=== PATIENT | male | born 1970 | race Caucasian/White ===

== ENCOUNTER 2021-01-06 05:43 | Emergency (ER) | payer OTHER ==
[~2021-01-06] VITALS: Ht 170.2 cm; Wt 99.8 kg
[2021-01-06 05:50] VITALS: BP_SYST 140
--- NOTE | 2021-01-06 05:50 | NUR ---
Patient to ER bed 5 to gown for evaluation. Side rails up. Report given to Shahla ORTIZ.
--- NOTE | 2021-01-06 06:04 | NUR ---
ER Dr. Jaquez at bedside examining patient.
--- NOTE | 2021-01-06 06:10 | NUR ---
Assumed total care of patient. Patient AAo x4 from home c/o right foot pain and swelling that started about 2 weeks ago. Patient has history of cellulitis on same foot in same spot, states he typically takes antibiotics which helps resolve symptoms. Patient denies fever, chills, nausea, vomiting, SOB. Patient denies history of diabetes. Will continue to monitor.
--- NOTE | 2021-01-06 06:26 | NUR ---
Radiology at bedside for xray.
--- NOTE | 2021-01-06 07:17 | NUR ---
Report given to ANGEL Almanzar for continuation of care.
[2021-01-06 07:29] LABS: BASOPHILS # (AUTO) 0.1 K/uL (0.0-0.2); EOSINOPHILS # (AUTO) 0.3 K/uL (0.0-0.4); EOSINOPHILS % (AUTO) 4.4 % (0.0-4.0); HEMATOCRIT 36.7 % (36-54); HEMOGLOBIN 12.3 g/dL (14.0-18.0); LYMPHOCYTES # (AUTO) 1.8 K/uL (1.0-5.5); LYMPHOCYTES % (AUTO) 26.7 % (20.5-51.5); MEAN CORPUSCULAR HEMOGLOBIN 28 pg (27-31); MEAN CORPUSCULAR HGB CONC 34 % (32-36); MEAN CORPUSCULAR VOLUME 84 fL (79.0-98.0); MONOCYTES # (AUTO) 0.7 K/uL (0.0-1.0); MONOCYTES % (AUTO) 9.8 % (1.7-9.3); NEUTROPHILS % (AUTO) 58.1 % (40.0-70.0); PLATELET COUNT (AUTO) 274 K/uL (130-430); RED BLOOD CELL COUNT(AUTO) 4.37 MIL/uL (4.2-6.2); RED CELL DISTRIBUTION WIDTH 14.7 % (9.0-15.0); WHITE BLOOD COUNT (AUTO) 6.9 K/uL (4.8-10.8)
[2021-01-06 07:35] LABS: CALCIUM 8.5 mg/dL (8.4-11.0); CREATININE 1.37 mg/dL (0.55-1.30); POTASSIUM 4.3 mmol/L (3.5-5.1)
[2021-01-06 07:43] LABS: TOTAL BILIRUBIN 0.3 mg/dL (0.0-1.0)
[2021-01-06 07:44] LABS: ALBUMIN 3.2 g/dL (3.4-4.8); C-REACTIVE PROTEIN QUANT 0.7 mg/dL (0-0.5); URIC ACID 9.1 mg/dL (2.4-7.0)
[2021-01-06] MEDS ORDERED: HYDROcodone/ACETAMIN 10-325 MG TAB PO ONE (07:45)
[2021-01-06] MEDS ORDERED: KETOROLAC TROMETHAMINE 60 MG/2 ML VIAL IM ONE (07:45)
[2021-01-06] MEDS ORDERED: HYDR-3917 PO (07:55)
[2021-01-06] MEDS ORDERED: ALLO100T PO (07:55)
[2021-01-06] MEDS ORDERED: IBUP-1971 PO (07:55)
[2021-01-06 08:30] VITALS: BP_SYST 140
--- NOTE | 2021-01-06 08:31 | NUR ---
Patient given written and verbal discharge instructions and verbalizes understanding. ER MD discussed with patient the results and treatment provided. Patient in stable condition. ID arm band removed. Rx of allopurinol, motrin, and norco given. Patient educated on pain management and to follow up with PMD. Pain Scale 2/10. Opportunity for questions provided and answered. Medication side effect fact sheet provided.
[2021-01-06 11:33] LABS: ERYTHROCYTE SEDIMENTATION RATE 14 MM/HR (0-15)
== END 2021-01-06 08:31 | disposition home or self-care (01) ==
LOC: SED 05:43
DX: M10.9 Gout, unspecified (principal)
CPT/HCPCS: 36415; 73620; 80053; 83605; 84550; 85025; 85651; 86140; 96372; 99284; J1885

== ENCOUNTER 2021-02-18 23:18 | Emergency (ER) | payer OTHER ==
[~2021-02-18] VITALS: Ht 170.2 cm; Wt 90.7 kg
[~2021-02-18 23:18] MED LIST: ALLO100T PO; HYDR-3917 PO; IBUP-1971 PO
[2021-02-18 23:53] VITALS: BP_SYST 145
--- NOTE | 2021-02-19 01:14 | NUR ---
Patient ambulatory to bed for evaluation
--- NOTE | 2021-02-19 01:15 | NUR ---
JACQUELYN Butler at bedside examining patient.
[2021-02-19] MEDS ORDERED: PIPERACILLIN/TAZO 3.38 GM in D5W 50 ML IV ONE (01:45)
[2021-02-19] MEDS ORDERED: OXYCODONE/ACETAMINOPHEN 5-325 TABLET PO ONE (01:45)
[2021-02-19] MEDS ORDERED: VANCOMYCIN HCL 1,000 MG in D5W 250 ML IV ONE (01:45)
[2021-02-19] MEDS ORDERED: KETOROLAC TROMETHAMINE 30 MG VIAL IVP ONE (01:45)
--- NOTE | 2021-02-19 01:45 | NUR ---
AWAKE, ALERT. PT STATES THAT HE HAD BEEN HAVING [place] ANKLE PAIN, IT HURTS EVERYDAY FOR SOME TIME NOW. HE ADMITS TO HAVING CELLULITIS AND GOUT, 10/10 IN PAIN SCALE. HE ALSO HAS SOME KIND OF RASH IN HIS ANKLE.
[2021-02-19 02:24] LABS: BASOPHILS # (AUTO) 0.1 K/uL (0.0-0.2); EOSINOPHILS # (AUTO) 0.3 K/uL (0.0-0.4); EOSINOPHILS % (AUTO) 4.2 % (0.0-4.0); HEMOGLOBIN 12.5 g/dL (14.0-18.0); LYMPHOCYTES # (AUTO) 1.7 K/uL (1.0-5.5); MEAN CORPUSCULAR HEMOGLOBIN 28 pg (27-31); MEAN CORPUSCULAR HGB CONC 33 % (32-36); MEAN CORPUSCULAR VOLUME 84 fL (79.0-98.0); MONOCYTES # (AUTO) 0.6 K/uL (0.0-1.0); MONOCYTES % (AUTO) 9.9 % (1.7-9.3); NEUTROPHILS # (AUTO) 3.7 K/uL (1.8-7.7); NEUTROPHILS % (AUTO) 57.9 % (40.0-70.0); PLATELET COUNT (AUTO) 272 K/uL (130-430); RED BLOOD CELL COUNT(AUTO) 4.51 MIL/uL (4.2-6.2); RED CELL DISTRIBUTION WIDTH 14.6 % (9.0-15.0); WHITE BLOOD COUNT (AUTO) 6.4 K/uL (4.8-10.8)
[2021-02-19 02:56] LABS: CALCIUM 9.1 mg/dL (8.4-11.0); CREATININE 1.32 mg/dL (0.55-1.30); POTASSIUM 3.8 mmol/L (3.5-5.1)
--- NOTE | 2021-02-19 03:00 | NUR ---
DOZES ON AND OFF. NO DISTRESS NOTED. AT BEDSIDE VISITING AT THIS TIME.
[2021-02-19 03:09] LABS: ALBUMIN 3.3 g/dL (3.4-4.8); TOTAL BILIRUBIN 0.3 mg/dL (0.0-1.0)
[2021-02-19] MEDS ORDERED: IBUP-1969 PO ×2 (03:33→03:36)
[2021-02-19] MEDS ORDERED: HYDR-3917 PO (03:33)
[2021-02-19] MEDS ORDERED: PIPERACILLIN/TAZOBACTAM 3.375 GM/VIAL (ZOSYN) IV ONE (03:34)
[2021-02-19] MEDS ORDERED: SULF1TAB48 PO (03:36)
[2021-02-19] MEDS ORDERED: VANCOMYCIN HCL 1000 MG/VIAL IV ONE (03:57)
[2021-02-19 05:35] VITALS: BP_SYST 145
--- NOTE | 2021-02-19 05:35 | NUR ---
Patient given written and verbal discharge instructions and verbalizes understanding. ER DR GALDINO TITUS discussed with patient the results and treatment provided. Patient in stable condition. ID arm band removed. IV catheter removed intact and dressing applied, no active bleeding. Rx of NORCO, IBUPROFEN, & BACTRIM given. Patient educated on pain management and to follow up with PMD. Pain Scale . Opportunity for questions provided and answered. Medication side effect fact sheet provided.
[2021-02-19 08:57] LABS: ERYTHROCYTE SEDIMENTATION RATE 24 MM/HR (0-15)
== END 2021-02-19 05:35 | disposition home or self-care (01) ==
LOC: SED 23:18
DX: L03.116 Cellulitis of left lower limb (principal); M10.9 Gout, unspecified
CPT/HCPCS: 36415; 80053; 83605; 84550; 85025; 85651; 87040; 96365; 96368; 96375; 99284; J1885; J2543; J3370

== ENCOUNTER 2021-04-21 22:03 | Emergency (ER) | payer OTHER, SELFPAY ==
[~2021-04-21] VITALS: Ht 170.2 cm; Wt 90.7 kg
[~2021-04-21 22:03] MED LIST changes: +IBUP-1969 PO; +SULF1TAB48 PO
[2021-04-21 22:10] VITALS: BP_SYST 113
--- NOTE | 2021-04-21 22:10 | NUR ---
Patient triaged and placed in the tent. VSS and patient appears in no acute distress at this time. awaiting available bed, and MD notified of need for MSE.
--- NOTE | 2021-04-22 01:05 | NUR ---
ER examining patient in [facility] tent.
[2021-04-22] MEDS ORDERED: IBUPROFEN 600 MG TABLET PO ONE (01:15)
[2021-04-22] MEDS ORDERED: IBUP-1969 PO (01:55)
[2021-04-22] MEDS ORDERED: HYDR-3917 PO (01:55)
[2021-04-22 02:05] VITALS: BP_SYST 118
--- NOTE | 2021-04-22 02:05 | NUR ---
Patient given written and verbal discharge instructions and verbalizes understanding. ER MD discussed with patient the results and treatment provided. Patient in stable condition. ID arm band removed. Rx of [place] and Motrin given. Patient educated on pain management and to follow up with PMD. Pain Scale 0/10 Opportunity for questions provided and answered. Medication side effect fact sheet provided.
== END 2021-04-21 22:10 | disposition home or self-care (01) ==
LOC: SED 22:03
DX: B34.9 Viral infection, unspecified (principal); Z20.822 Contact with and (suspected) exposure to COVID-19; Z79.899 Other long term (current) drug therapy
CPT/HCPCS: 36415; 99283

== ENCOUNTER 2021-08-21 20:33 | Emergency (ER) | payer OTHER ==
[~2021-08-21] VITALS: Ht 170.2 cm; Wt 90.7 kg
--- NOTE | 2021-08-21 20:42 | NUR ---
DR CODY in room for exam
[2021-08-21 20:43] VITALS: BP_SYST 135
--- NOTE | 2021-08-21 20:43 | NUR ---
Patient to ER bed 03 to gown for evaluation. Side rails up.
--- NOTE | 2021-08-21 20:58 | NUR ---
PT COMES TO ER WITH C/O LEFT FOOT PAIN X 2 DAYS. ADMITS TO DRINKING ALCOHOL AND EATING MEAT. ALSO STATES HE'S NOT TAKING HIS PRESCRIBED MEDS PRESCRIBED. MILD REDNESS NOTED, NO GROSS SWELLING NOTED, WARM TO TOUCH.
[2021-08-21] MEDS ORDERED: HYDROcodone/ACETAMIN 5-325 MG TAB (NORCO/ VICODIN) PO ONE (22:00)
[2021-08-21] MEDS ORDERED: IBUP-1969 PO (23:12)
--- NOTE | 2021-08-21 23:50 | NUR ---
PER DR AUGUSTE, OK TO CANCEL LAB DRAW AND DC PT.
[2021-08-21 23:53] VITALS: BP_SYST 133
--- NOTE | 2021-08-21 23:54 | NUR ---
Patient given written and verbal discharge instructions and verbalizes understanding. ER MD discussed with patient the results and treatment provided. Patient in stable condition. ID arm band removed. Rx of NORCO, IBUPOFEN given. Patient educated on pain management and to follow up with PMD. Pain Scale . Opportunity for questions provided and answered. Medication side effect fact sheet provided.
[2021-08-21] MEDS ORDERED: COLC0.6T67 PO (23:55)
[2021-08-21] MEDS ORDERED: ALLO100T PO (23:55)
== END 2021-08-21 23:53 | disposition home or self-care (01) ==
LOC: SED 20:33
DX: M10.9 Gout, unspecified (principal); Z79.899 Other long term (current) drug therapy
CPT/HCPCS: 99283

== ENCOUNTER 2021-12-10 00:01 | Emergency (ER) | payer OTHER ==
[~2021-12-10] VITALS: Ht 170.2 cm; Wt 99.8 kg
[~2021-12-10 00:01] MED LIST changes: +COLC0.6T67 PO
--- NOTE | 2021-12-10 00:03 | NUR ---
PT CAME FROM HOME WITH C/O GOUT FLARE UP FROM THE LEFT ANKLE TO LEFT KNEE. PT STATED THE PAIN STARTED 2 DAYS AGO. PT HAS HX OF GOUT. RATED PAIN 10/10.
[2021-12-10 00:16] VITALS: BP_SYST 158
[2021-12-10] MEDS ORDERED: KETOROLAC TROMETHAMINE 60 MG/2 ML VIAL IM ONE (00:30)
[2021-12-10] MEDS ORDERED: COLCHICINE 0.6 MG TABLET PO ONE (00:30)
--- NOTE | 2021-12-10 00:45 | NUR ---
ASSUME CARE OF PT BY [place] ORTIZ, PT C/O LEFT ANKLE PAIN/SWELLING, PT STATES PAIN STARTS FROM HIS LEFT KNEE AND RUNS DOWN TO ANKLE X 2 DAYS, HX- GOUT, DENIES TAKING ANY MEDS.
[2021-12-10] MEDS ORDERED: COLCHICINE 0.6 MG TABLET ONE (01:20)
[2021-12-10] MEDS ORDERED: COLC0.6C3 PO (02:38)
[2021-12-10] MEDS ORDERED: ALLO100T91 PO (02:38)
[2021-12-10] MEDS ORDERED: NAPR-1172 PO (02:38)
[2021-12-10 02:46] VITALS: BP_SYST 123
--- NOTE | 2021-12-10 02:48 | NUR ---
Patient given written and verbal discharge instructions and verbalizes understanding. ER MD discussed with patient the results and treatment provided. Patient in stable condition. ID arm band removed. Rx of Naproxen, allopurinol, colchicine given. Patient educated on pain management and to follow up with PMD. Pain Scale 2. Opportunity for questions provided and answered. Medication side effect fact sheet provided.
== END 2021-12-10 02:48 | disposition home or self-care (01) ==
LOC: SED 00:01
DX: M10.9 Gout, unspecified (principal); M25.571 Pain in right ankle and joints of right foot; M25.561 Pain in right knee; Z79.899 Other long term (current) drug therapy
CPT/HCPCS: 99283; 96372; J1885

== ENCOUNTER 2021-12-24 23:39 | Emergency (ER) | payer OTHER ==
[~2021-12-24] VITALS: Ht 170.2 cm; Wt 100.2 kg
[~2021-12-24 23:39] MED LIST changes: +ALLO100T91 PO; +COLC0.6C3 PO; +NAPR-1172 PO
[2021-12-24 23:45] VITALS: BP_SYST 132
--- NOTE | 2021-12-25 00:05 | NUR ---
PT HERE C/O LT ARM NUMBNESS AND TINGLING SENSATION ON AND OFF X4 DAYS. PT DENIES FEVER. NOTED SPLINT TO HIS LT EXTREMITIES. PATIENT STATED THAT HE UNDERWENT [place] [facility] [place]15/21 BAND PER PT HE WAS DC'D ON A WEEK AGO. FINGERS ARE WARM TO TOUGH, +SENSATION, <3 SECS ON CAPILLARY TIME. PMH:LT ARM SURGERY, GOUT PT AAOX4, DENIES SOB. PT AMBULATED WITH STEADY GAIT TO RM 5, PENDING MD POWELL.
--- NOTE | 2021-12-25 02:55 | NUR ---
PT D/C WITH PRESCRIPTION, GIVEN D/C INSTRUCTIONS IN STABLE CONDITION
[2021-12-25] MEDS ORDERED: AUG875 PO (02:59)
== END 2021-12-25 03:08 | disposition home or self-care (01) ==
LOC: SED 23:39
DX: M79.632 Pain in left forearm (principal); G89.18 Other acute postprocedural pain; M79.642 Pain in left hand; Z79.899 Other long term (current) drug therapy
CPT/HCPCS: 99283

== ENCOUNTER 2022-08-24 12:25 | Emergency (ER) | payer OTHER ==
[~2022-08-24] VITALS: Ht 170.2 cm; Wt 113.4 kg
[2022-08-24 12:25] VITALS: BP_SYST 169
[~2022-08-24 12:25] MED LIST changes: +AUG875 PO
--- NOTE | 2022-08-24 12:25 | NUR ---
BROUGHT BACK TO BED #1 AND TRIAGED. REPORT GIVEN TO BECKY
--- NOTE | 2022-08-24 12:40 | NUR ---
DR PARRISH TO BEDSIDE FOR EVALUATION
[2022-08-24] MEDS ORDERED: HYDROcodone/ACETAMIN 10-325 MG TAB PO ONE (12:45)
[2022-08-24] MEDS ORDERED: KETOROLAC TROMETHAMINE 60 MG/2 ML VIAL IM ONE (12:45)
--- NOTE | 2022-08-24 12:45 | NUR ---
PT BIB SELF FROM HOME C/O PAIN TO LEFT ARM. PT STATES SURGERY WITH RECONSTRUCTION IN LEFT ARM. PT STATES HURTS TO MOVE ARM. PAIN IS NONRADIATING. PAIN 10/. PT STATES NO OTHER HISTORY. PT VSS RESTING IN BED
[2022-08-24 13:05] LABS: BASOPHILS # (AUTO) 0.1 K/uL (0.0-0.2); BASOPHILS % (AUTO) 1.2 % (0.0-2.0); EOSINOPHILS # (AUTO) 0.4 K/uL (0.0-0.4); HEMATOCRIT 32.6 % (36-54); HEMOGLOBIN 10.2 g/dL (14.0-18.0); LYMPHOCYTES # (AUTO) 2.1 K/uL (1.0-5.5); LYMPHOCYTES % (AUTO) 29.1 % (20.5-51.5); MEAN CORPUSCULAR HEMOGLOBIN 22 pg (27-31); MEAN CORPUSCULAR HGB CONC 31 % (32-36); MEAN CORPUSCULAR VOLUME 70 fL (79.0-98.0); MONOCYTES # (AUTO) 0.6 K/uL (0.0-1.0); MONOCYTES % (AUTO) 8.5 % (1.7-9.3); NEUTROPHILS % (AUTO) 55.2 % (40.0-70.0); PLATELET COUNT (AUTO) 337 K/uL (130-430); RED BLOOD CELL COUNT(AUTO) 4.67 MIL/uL (4.2-6.2); RED CELL DISTRIBUTION WIDTH 16.8 % (9.0-15.0); WHITE BLOOD COUNT (AUTO) 7.3 K/uL (4.8-10.8)
[2022-08-24 13:14] LABS: ERYTHROCYTE SEDIMENTATION RATE 7 MM/HR (0-15)
[2022-08-24 13:16] LABS: ANION GAP 10 (5-15); CALCIUM 8.5 mg/dL (8.4-11.0); CHLORIDE 106 mmol/L (98-107); CREATININE 1.71 mg/dL (0.55-1.30); GFR AFRICAN AMERICAN 55 mL/min (>90); GLUCOSE 105 mg/dL (70-99); UREA NITROGEN, BLOOD 18 mg/dL (8-21)
[2022-08-24 13:21] LABS: ALANINE AMINOTRANSFERASE 25 U/L (12-78); ALBUMIN 3.7 g/dL (3.4-4.8); ASPARTATE AMINOTRANSFERASE 17 U/L (10-37); C-REACTIVE PROTEIN QUANT < 0.2 mg/dL (0-0.5); TOTAL BILIRUBIN 0.3 mg/dL (0.0-1.0); URIC ACID 7.7 mg/dL (2.4-7.0)
[2022-08-24] MEDS ORDERED: IBUP-1971 PO (13:32)
[2022-08-24] MEDS ORDERED: TRAM50TA2 PO (13:32)
[2022-08-24 14:22] VITALS: BP_SYST 169
--- NOTE | 2022-08-24 14:25 | NUR ---
Patient given written and verbal discharge instructions and verbalizes understanding. ER MD discussed with patient the results and treatment provided. Patient in stable condition. ID arm band removed. Rx of IBUPROFIN AND ULTRAM given. Patient educated on pain management and to follow up with PMD. Pain Scale 5. Opportunity for questions provided and answered. Medication side effect fact sheet provided.
== END 2022-08-24 14:25 | disposition home or self-care (01) ==
LOC: SED 12:25
DX: M79.632 Pain in left forearm (principal); Z79.899 Other long term (current) drug therapy
CPT/HCPCS: 99284; 80053; 84550; 85025; 85651; 86140; 36415; 73090; 96372; J1885

== ENCOUNTER 2022-09-05 23:32 | Emergency (ER) | payer OTHER ==
[~2022-09-05] VITALS: Ht 170.2 cm; Wt 102.1 kg
[~2022-09-05 23:32] MED LIST changes: +TRAM50TA2 PO
[2022-09-05 23:57] VITALS: BP_SYST 145
[2022-09-06] MEDS ORDERED: DOCU-144 PO (00:44)
[2022-09-06 01:06] VITALS: BP_SYST 125
== END 2022-09-06 01:02 | disposition home or self-care (01) ==
LOC: SED 23:32
DX: K62.5 Hemorrhage of anus and rectum (principal); K64.9 Unspecified hemorrhoids; Z79.899 Other long term (current) drug therapy
CPT/HCPCS: 99282

== ENCOUNTER 2023-03-25 18:39 | Emergency (ER) | payer OTHER ==
[~2023-03-25] VITALS: Ht 170.2 cm; Wt 99.8 kg
[~2023-03-25 18:39] MED LIST changes: +DOCU-144 PO
[2023-03-25 18:48] VITALS: BP_SYST 94; PULSE 99; RESP 20; TEMP 98.3; O2SAT 100
[2023-03-25 19:57] LABS: COVID19 ANTIGEN SOFIA FIA NEGATIVE (NEGATIVE)
[2023-03-25 19:58] LABS: INFLUENZA TYPE A Negative (NEGATIVE)
[2023-03-25 20:05] LABS: INFLUENZA TYPE B POSITIVE (NEGATIVE)
[2023-03-25] MEDS ORDERED: AZIT-93 PO (20:05)
[2023-03-25] MEDS ORDERED: PHEDM120 PO (20:05)
[2023-03-25] MEDS ORDERED: IBUP-1969 PO (20:05)
== END 2023-03-25 20:10 | disposition home or self-care (01) ==
LOC: SED 18:39
DX: J18.9 Pneumonia, unspecified organism (principal); J10.1 Influenza due to other identified influenza virus with other respiratory manifestations; Z20.822 Contact with and (suspected) exposure to COVID-19; Z79.899 Other long term (current) drug therapy
CPT/HCPCS: 36415; 71045; 99284

== ENCOUNTER 2023-08-31 03:02 | Emergency (ER) | payer OTHER ==
[~2023-08-31] VITALS: Ht 177.8 cm; Wt 99.8 kg
[~2023-08-31 03:02] MED LIST changes: +AZIT-93 PO; +PHEDM120 PO
[2023-08-31 03:05] VITALS: BP_SYST 184; PULSE 64; RESP 16; TEMP 97.9; O2SAT 100
[2023-08-31] MEDS: KETOROLAC TROMETHAMINE 60 MG/2 ML VIAL IM ONE (03:44)
[2023-08-31] MEDS ORDERED: CEPH-548 PO (03:48)
[2023-08-31] MEDS ORDERED: IBUP-1971 PO (03:48)
[2023-08-31 04:01] VITALS: BP_SYST 184; PULSE 64; RESP 16; TEMP 97.9; O2SAT 100
== END 2023-08-31 03:58 | disposition home or self-care (01) ==
LOC: SED 03:02
DX: L03.011 Cellulitis of right finger (principal); M79.644 Pain in right finger(s); R03.0 Elevated blood-pressure reading, without diagnosis of hypertension; Z79.899 Other long term (current) drug therapy; Z79.2 Long term (current) use of antibiotics
CPT/HCPCS: 99283; 73140; 96372; J1885